=== PATIENT | male | born 1960 | race African-American/Black ===

== ENCOUNTER 2019-06-03 15:30 | Emergency (ER) | payer OTHER, SELFPAY ==
[2019-06-03 16:01] VITALS: BP 115/76; PULSE 55; RESP 18; TEMP 36.5; O2SAT 98; BMI 33.5
--- NOTE | 2019-06-03 17:47 | ED.EYEPROB ---
HPI - Eye Problem <Ke Walker [facility] - Last Filed: 06/03/19 23:10> General Chief complaint: Eye Problems Stated complaint: right eye puffy and irritated Time Seen by Provider: 06/03/19 17:43 Source: patient and family Mode of arrival: Family Vehicle Limitations: no limitations History of Present Illness HPI Narrative: This is a 58-year-old male, nonsmoker, who presents to ED with spouse with chief complain of right inner corner eye discomfort and some swelling to upper eyelids when he woke up this morning. Patient denies vision changes. Patient denies purulent discharge from affected eye this morning when he woke up. Patient denies recent cold symptoms, fever, chills, nausea or vomiting. Patient denies foreign body sensation. Patient usually wears eyeglasses. Related Data Home Medications Medication Instructions Recorded Confirmed amlodipine 5 mg PO DAILY 06/03/19 06/03/19 aspirin 81 mg PO DAILY 06/03/19 06/03/19 atorvastatin 40 mg PO QPM 06/03/19 06/03/19 sildenafil [Viagra] 0 mg PO DIRECTED PRN 06/03/19 06/03/19 telmisartan-hydrochlorothiazid 1 tab PO DAILY 06/03/19 06/03/19 [Micardis HCT] Allergies Allergy/AdvReac Type Severity Reaction Status Date / Time No Known Drug Allergies Allergy Verified 06/03/19 16:06 Review of Systems <Ke Walker [facility] - Last Filed: 06/03/19 23:10> Review of Systems Narrative: General: Denies fever, chills, fatigue, malaise, sweats. HEENT: See HPI Respiratory: Denies dyspnea, cough, wheezing, hemoptysis, sputum. Cardiovascular: Denies chest pain, palpitations, orthopnea, edema. Gastrointestinal: Denies nausea, vomiting, abdominal pain, diarrhea, constipation, melena. : Denies dysuria, frequency, incontinence, hematuria, urinary retention. Musculoskeletal: Denies weakness, joint pain or bony pain. Skin: Denies rash, skin lesions, or other. Neurologic: Denies weakness, headache, numbness, change in speech, confusion, seizures, incoordination. Psychiatric: No concerning psychosocial issues. 12-point review of systems is negative except for those stated above. Patient History <DEBRA Metz - Last Filed: 06/03/19 23:10> Social History Smoking Status: Never smoker Smoking Status: Never smoker alcohol intake frequency: holidays/special occasions only Substance Use Type: does not use Exam <DEBRA Metz - Last Filed: 06/03/19 23:10> Narrative Exam Narrative: General appearance: well developed, well nourished, in no acute distress. Head: normocephalic, atraumatic, no scalp lesions, non-tender. ENT: Mild R upper lid swelling, EOM intact, clear corneas, +red reflex, mildly injected R conjunctiva w/o purulent discharge. <1mm pustule inside R upper lid. No fluorescein uptake noted in R conjunctiva. IOP 14-15 in R eye. Bilateral auditory canals and tympanic membranes clear. Hearing grossly intact. Nose without bleeding, purulent discharge, septal hematoma or deviation. Turbinate without erythema or swelling. Facial sinuses nontender to palpate. Mucous membrane moist, no mucosal lesion. Throat without erythema, tonsillar hypertrophy or exudate. Uvula in midline, airway patent. Neck/Thyroid: neck supple, full range of motion, no visible masses or meningeal signs. No JVD, non-tender without lymphadenopathy. Skin: no suspicious rashes, lesions over visible areas. Warm and dry and appropriate color for ethnicity. Heart: no clubbing, no cyanosis, no edema. S1 and S2 normal. RRR w/o murmurs, clicks, or bruits. Lungs: Breathing even and unlabored. No stridor. No accessory muscles used. Able to speak in full sentences. Chest: normal shape and expansion. Abdomen: non-obese, non-distended. Neurologic: alert and oriented. Cognitive exam, [employer] and PNS grossly intact on informal exam. Psych: good eye contact, normal affect. Initial Vital Signs Initial Vital Signs: Vital Signs Temperature 97.7 F 06/03/19 16:01 Pulse Rate 55 L 06/03/19 16:01 Respiratory Rate 18 06/03/19 16:01 Blood Pressure 115/76 06/03/19 16:01 Pulse Oximetry 98 06/03/19 16:01 HENMT Head: normal to inspection <Aixa Strong DO - Last Filed: 06/04/19 08:09> Initial Vital Signs Initial Vital Signs: Vital Signs Temperature 97.7 F 06/03/19 16:01 Pulse Rate 55 L 06/03/19 16:01 Respiratory Rate 18 06/03/19 16:01 Blood Pressure 115/76 06/03/19 16:01 Pulse Oximetry 98 06/03/19 16:01 Scores <[facility] - Last Filed: 06/03/19 23:10> GCS Raymond coma scale eye opening: Spontaneous [place] coma scale verbal response: Orientated Raymond coma scale motor response: Obey commands Raymond coma scale total score: 15 Course <[facility] - Last Filed: 06/03/19 23:10> Orders Ordered: Discontinued Medications Fluorescein Sodium (Ful-Connie) 1 mg EYE-RIGHT NOW ONE Stop: 06/03/19 17:48 Last Admin: 06/03/19 18:17 Dose: 1 mg Documented by: WILDA Proparacaine HCl (Parcaine 0.5% Ophth Ilsa) 1 drops EYE-RIGHT NOW ONE Stop: 06/03/19 17:48 Last Admin: 06/03/19 18:17 Dose: 1 drop Documented by: WILDA Vital Signs Vital signs: Vital Signs - 8 hr 06/03/19 16:01 06/03/19 18:37 Temperature 97.7 F Pulse Rate 55 L 59 L Respiratory Rate 18 18 Blood Pressure 115/76 118/80 Pulse Oximetry 98 99 <Aixa Strong DO - Last Filed: 06/04/19 08:09> Orders Ordered: Discontinued Medications Fluorescein Sodium (Ful-Connie) 1 mg EYE-RIGHT NOW ONE Stop: 06/03/19 17:48 Last Admin: 06/03/19 18:17 Dose: 1 mg Documented by: WILDA Proparacaine HCl (Parcaine 0.5% Ophth Ilsa) 1 drops EYE-RIGHT NOW ONE Stop: 06/03/19 17:48 Last Admin: 06/03/19 18:17 Dose: 1 drop Documented by: WILDA Vital Signs Vital signs: Vital Signs - 8 hr 06/03/19 16:01 06/03/19 18:37 Temperature 97.7 F Pulse Rate 55 L 59 L Respiratory Rate 18 18 Blood Pressure 115/76 118/80 Pulse Oximetry 98 99 MDM - Eye Problem <[facility] - Last Filed: 06/03/19 23:10> Differential Diagnosis Differential diagnosis: Likely corneal abrasion, conjunctivitis and other (Foreign body, stye eye) Medical Records Attestation: I reviewed the patient's medical records. [facility] Narrative Medical decision making narrative: This is a 58-year-old male who presents to ED with right inner corner eye discomfort without foreign body sensation or decreased in vision. patient denies on discharge or recent cold symptoms. Physical exam showed inner right upper lid stye eye with mild conjunctival injection without purulent discharge appreciated. There is no fluorescent uptake after evaluated with Wood's lamp. Patient's IOP is normal. Affected eye was irrigated with 60 cc of normal saline. Patient advised to use warm pack on affected eye frequently next couple of days since this will resolve usually on his own. Patient advised to take Tylenol as needed for discomfort. Patient advised to take precaution not to share towels or pillows to prevent spreading infection to others and not to touch the affected eye frequent. Return precautions were discussed with the patient and advised to follow up with molder punch if discomfort persists. Patient verbalized understanding and agrees with the treatment plan. Discharge Plan Departure Patient Disposition: Home Clinical Impression: Hordeolum eyelid, internal Qualifiers: Laterality: right Eyelid: upper Qualified Code(s): H00.021 - Hordeolum internum right upper eyelid Discharge Date/Time: 06/03/19 18:37 Instructions: DI for Hordeolum Activity Restrictions/Additional Instructions: You have been diagnosed with [ internal sty eye in R upper lid ]. What to do: *Take your medications as directed. If you have discomfort, you can take Tylenol 650-1000 mg at a time 4 times a day as needed. You can use warm pack affected eyelid several times a day and please be careful not to get burn from warm pack. Usually stye eye resolves on its own. Please do not touch her eye and keep your hands and eyes clean. Do not share towel and pillow cases without others. *Follow up with your primary care provider in 2-3 days, call for an appointment and molder punch as needed. Let them know you were seen in the ED and that we asked you to be seen in follow up. *Return to ED if you have any new, worsening, or concerning symptoms, such as decreased vision, fever, redness spreading to eyelids and face, severe eye pain, or any acute concerns]. Prescriptions: No Action atorvastatin 40 mg tablet 40 mg PO QPM RF: 0 amlodipine 5 mg tablet 5 mg PO DAILY RF: 0 aspirin 81 mg tablet,delayed release (DR/EC) 81 mg PO DAILY RF: 0 sildenafil [Viagra] 100 mg tablet 0 mg PO DIRECTED PRN (Reason: Erectile Dysfunction) RF: 0 telmisartan-hydrochlorothiazid [Micardis HCT] 80-25 mg tablet 1 tab PO DAILY RF: 0 Referrals: Yonas Akers [Primary Care Provider] -
[2019-06-03] MEDS: FLUORESCEIN 1 MG STRIP EYE-RIGHT (18:17)
[2019-06-03] MEDS: PROPARACAINE 0.5% OPHTH SOL 1 DROPS EYE-RIGHT (18:17)
[2019-06-03 18:37] VITALS: BP 118/80; PULSE 59; RESP 18; O2SAT 99
== END 2019-06-03 18:37 | disposition home or self-care (01) ==
PROVIDERS: Emergency Provider Nurse Practitioner Family; PCP Physician Assistant
DX: H00.021 Hordeolum internum right upper eyelid (principal)
CPT/HCPCS: 99281; 99282